=== PATIENT | male | born 1960 | race Caucasian/White ===

== ENCOUNTER 2020-03-31 14:44 | Inpatient (IN) | payer OTHER ==
[~2020-03-31] VITALS: Ht 172.7 cm; Wt 86.2 kg
[~2020-03-31 14:44] MED LIST: ALBUTEROL1.25 MG/3 INH; ALBUTEROL2.5 MG/3 M INH; AMOX TR-K CLV1 EAC4 PO; AUGMENTIN 875-1 EACH PO; AZITHROMYCIN500 MG PO; BUSPAR 10MG10 MG PO; CEFUROXIME500 MG PO; COLACE 100MG C100 MG PO; COMBIVENT RESPIM4 GM INH; COMBIVENT0.074 GM/I INH; DALIRESP500 MCG PO; DOXYCYCLINE HY100 MG PO; FEOSOL325 MG PO; FERROUS SULFAT325 M2 PO; FLONASE 0.05% N16 GM; HABITROL 21 MG P1 EA TOP; IPRAT-ALBUT 0.5-3 ML INH; LEVOFLOXACIN500 MG PO; LEXAPRO10 MG PO; LOPRESSOR 25 MG25 MG PO; MEDROL4 MG PO; MELATONIN3 M3 PO; MUCINEX600 MG PO; NORCO 5-325 TA1 EACH PO; NORVASC10 MG PO; PANTOPRAZOLE SO40 MG PO; PERCOCET 5/325 T1 EA PO; PERCOCET 7.5-31 EACH PO; POTASSIUM CHLO20 ME1 PO; PREDNISONE 10 M10 MG PO; PREDNISONE 20 M20 MG PO; PREDNISONE 50 M50 MG PO; PREDNISONE20 MG PO; REMERON 15 MG T15 MG PO; SENNA LAX8.6 MG PO; SPIRIVA RESPIMAT4 GM INH; SYMBICORT 160-1 INHA INH; TESSALON PERLE100 MG PO; THEOPHYLLINE600 MG PO; TRAZODONE HCL100 MG PO; VIBRAMYCIN 100100 MG PO; VIBRAMYCIN100 MG PO
[2020-03-31 15:58] LABS: HEMOGLOBIN 11.5 gm/dl (14.0-17.5); RED BLOOD COUNT 4.42 M/UL (4.20-5.50); WHITE BLOOD COUNT 5.1 K/UL (4.5-11.0)
[2020-03-31 16:17] LABS: BUN/CREATININE RATIO 7 (0-10)
[2020-04-01 01:53] LABS: HEMOGLOBIN 10.7 gm/dl (14.0-17.5); RED BLOOD COUNT 4.12 M/UL (4.20-5.50); WHITE BLOOD COUNT 5.3 K/UL (4.5-11.0)
[2020-04-01 02:09] LABS: BUN/CREATININE RATIO 10 (0-10)
[2020-04-01] MEDS ORDERED: NEURONTIN 100100 MG PO (13:11)
[2020-04-01] MEDS ORDERED: PEPCID20 MG PO (13:11)
[2020-04-01] MEDS ORDERED: LOPRESSOR 25 MG25 MG PO (13:12)
[2020-04-01] MEDS ORDERED: DILTIAZEM 12HR60 MG PO (13:46)
[2020-04-01] MEDS ORDERED: GLUCOPHAGE500 MG PO (13:46)
[2020-04-02 05:53] LABS: RED BLOOD COUNT 3.87 M/UL (4.20-5.50)
[2020-04-02 06:04] LABS: BUN/CREATININE RATIO 8 (0-10)
[2020-04-05 04:41] LABS: HEMOGLOBIN 9.5 gm/dl (14.0-17.5); RED BLOOD COUNT 3.86 M/UL (4.20-5.50)
[2020-04-05 04:46] LABS: WHITE BLOOD COUNT 7.9 K/UL (4.5-11.0)
[2020-04-05 05:07] LABS: BUN/CREATININE RATIO 16 (0-10)
[2020-04-07 12:24] LABS: HEMOGLOBIN 11.2 gm/dl (14.0-17.5)
[2020-04-07 12:25] LABS: RED BLOOD COUNT 4.3 M/UL (4.20-5.50); WHITE BLOOD COUNT 13.4 K/UL (4.5-11.0)
[2020-04-07 12:43] LABS: BUN/CREATININE RATIO 14 (0-10)
[2020-04-08 03:36] LABS: HEMOGLOBIN 10.4 gm/dl (14.0-17.5); RED BLOOD COUNT 4.09 M/UL (4.20-5.50)
[2020-04-08 04:03] LABS: BUN/CREATININE RATIO 20 (0-10)
[2020-04-08 04:07] LABS: WHITE BLOOD COUNT 9.6 K/UL (4.5-11.0)
[2020-04-09 03:00] LABS: RED BLOOD COUNT 4.27 M/UL (4.20-5.50); WHITE BLOOD COUNT 9.4 K/UL (4.5-11.0)
[2020-04-09 03:13] LABS: BUN/CREATININE RATIO 16 (0-10)
[2020-04-10 06:42] LABS: HEMOGLOBIN 10.7 gm/dl (14.0-17.5); RED BLOOD COUNT 4.16 M/UL (4.20-5.50); WHITE BLOOD COUNT 7.3 K/UL (4.5-11.0)
[2020-04-10 07:23] LABS: BUN/CREATININE RATIO 26 (0-10)
[2020-04-16] MEDS ORDERED: PERCOCET 5/325 T1 EA PO (17:58)
[2020-04-16] MEDS ORDERED: KLONOPIN TAB 00.5 MG PO (17:58)
[2020-04-16] MEDS ORDERED: ARTIFICIAL TEAR15 M2 EYEBOTH (17:58)
[2020-04-16] MEDS ORDERED: CLARITIN 10MG T10 MG PO (17:58)
[2020-04-16] MEDS ORDERED: NEURONTIN 100100 MG PO (17:58)
== END 2020-04-17 18:00 | DRG 190 ==
LOC: ER1 14:44 → MED SURG 4 17:02 → ZEROF 17:02 → MED SURG 4 04-01 16:33
PROVIDERS: Emergency Medicine; Internal Medicine; Physician Assistant Medical; ADMIT Internal Medicine
DX: J44.1 Chronic obstructive pulmonary disease with (acute) exacerbation (principal); E43 Unspecified severe protein-calorie malnutrition; J96.21 Acute and chronic respiratory failure with hypoxia; J96.22 Acute and chronic respiratory failure with hypercapnia; M48.54XA Collapsed vertebra, not elsewhere classified, thoracic region, initial encounter for fracture; J96.12 Chronic respiratory failure with hypercapnia; E87.2 Acidosis; E87.6 Hypokalemia; F17.210 Nicotine dependence, cigarettes, uncomplicated; I10 Essential (primary) hypertension; F41.9 Anxiety disorder, unspecified; D64.9 Anemia, unspecified; Z85.46 Personal history of malignant neoplasm of prostate; Z88.0 Allergy status to penicillin; Z79.899 Other long term (current) drug therapy; M51.36 Other intervertebral disc degeneration, lumbar region; Z74.01 Bed confinement status; F39 Unspecified mood [affective] disorder
CPT/HCPCS: 0240U; 36415; 36600; 71045; 71046; 80048; 80053; 81001; 82550; 82553; 82803; 83605; 83735; 83874; 83880; 84153; 84484; 85025; 85027; 85379; 87040; 93005; 94640; 94660; 94664; 94760; 96365; 96372; 96374; 96375; 96376; 97116; 97116-GP-CQ; 97162; 97530; 97530-GP-CQ; 99285; G0378; J0696; J1650; J2920; J2930; J7030; U0002